=== PATIENT | female | born 1955 | race Caucasian/White ===

== ENCOUNTER 2022-04-30 13:57 | Observation (INO) ==
[2022-04-30] MEDS ORDERED: ZOFRAN 4 MG/2 ML IVP ONE (14:21)
[2022-04-30] MEDS ORDERED: ASPIRIN CHEWABLE PO STA (14:21)
[2022-04-30] MEDS ORDERED: GI COCKTAIL PO ONE (14:25)
[2022-04-30] MEDS ORDERED: CATAPRES PO ONE (14:26)
--- NOTE | 2022-04-30 14:31 | ED.PDOC ---
General <OLY RIVERA MD - Last Filed: 04/30/22 18:46> ED Provider: Dr. OLY RIVERA MD Chief Complaint: Hypertension Stated Complaint: mild back ache nonrad today, no injury, +nausea and elevated BP, hx [place] and cardiac stent, not short of breath, pt states she is not allergic to aspirin or zofran Time Seen by Provider: 04/30/22 14:04 Mode of Arrival: Walk-In Information Source: Patient Primary Care Provider: LANI RUELAS Sepsis Protocol: For patient's 13 years and over: Temp is 96.8 and below OR 101 and greater Pulse >90 BPM Resp >20/minute Acutely Altered Mental Status Are patient's symptoms suggestive of a new infection, such as: -Pneumonia -Skin, Soft Tissue -Endocarditis -UTI -Bone, Joint Infection -Implantable Device -Acute Abdominal Infection -Wound Infection -Meningitis -Blood Stream Catheter Infection -Unknown <ZEINA PRYOR MD - Last Filed: 04/30/22 22:05> Nursing and Triage Documentation Reviewed and Agree: Yes Does patient meet sepsis criteria?: No System Inflammatory Response Syndrome: Not Applicable Review of Systems <OLY RIVERA MD - Last Filed: 04/30/22 18:46> Review Of Systems Constitutional: Denies Fever Eyes: Denies Vision change Ears, Nose, Mouth, Throat: Denies Throat pain Respiratory: Denies Short of air Cardiac: Denies Chest pain GI: Reports Nausea; Denies Abdominal pain : Denies Flank pain Musculoskeletal: Denies Neck pain Skin: Denies Cyanosis Neurological: Denies Cognitive dysfunction All Other Systems: Other PFSH <OLY RIVERA MD - Last Filed: 04/30/22 18:46> Medical History (Updated 04/30/22 @ 21:22 by ZEINA PRYOR MD) Hypertension Social History Smoking and tobacco status: Never smoker Female Reproductive History Menstrual Hx Hysterectomy: Yes Hx Tubal Ligation: No Physical Exam <OLY RIVERA MD - Last Filed: 04/30/22 18:46> Physical Exam Appearance: Reports No pain distress Ill-appearing: None Pain Distress: None Eyes: Reports EOMI and Conjunctiva clear ENT: Reports Oropharynx normal Neck: Supple Respiratory: Reports Airway patent, Breath sounds clear and Breath sounds equal Cardiovascular: Reports RRR GI/: Reports Soft and Nontender Musculoskeletal: Reports ROM intact Skin: Reports Warm and Dry Neurological: Reports Alert and Oriented Psychiatric: Reports Affect appropriate Interpretation <OLY RIVERA MD - Last Filed: 04/30/22 18:46> Security Alarm Technician Time of Security Alarm Technician Interpretation: 18:45 Rate: Normal Rhythm: Sinus EKG Interpretation Time of EKG #1: 18:45 Rate: Normal Rhythm: Sinus Interpretation: no stemi <ZEINA PRYOR MD - Last Filed: 04/30/22 22:05> Re-Evaluation Time of Re-Evaluation: 22:04 Status: Improved Vital Signs Stable: Yes Pain Level: much better <ZEINA PRYOR MD - Last Filed: 04/30/22 22:05> Case Discussed Physician Notified: Dr LOUIE Time of Notification: 21:40 (call [facility] to see if can be admitted if not admit to hospitals[facility] then Dr Ruelas can see or leave to hospitalist. ) <ZEINA PRYOR MD - Last Filed: 04/30/22 22:05> Critical Care Note Total Critical Care Time (mins): 0 Course <OLY RIVERA MD - Last Filed: 04/30/22 18:46> Course Hematology/Chemistry: 04/30/22 14:53 04/30/22 14:53 Orders, Labs, Meds: Lab Review 04/30/22 04/30/22 04/30/22 14:37 14:53 14:53 WBC 7.83 RBC 4.60 Hgb 14.2 Hct 42.7 MCV 92.8 MCH 30.9 MCHC 33.3 RDW Coeff of Todd 12.2 Plt Count 267 Immature Gran % (Auto) 0.1 Neut % (Auto) 66.9 Lymph % (Auto) 24.9 [place] % (Auto) 5.7 Eos % (Auto) 1.5 Baso % (Auto) 0.9 Neut # (Auto) 5.2 Lymph # (Auto) 2.0 [place] # (Auto) 0.5 Eos # (Auto) 0.1 Baso # (Auto) 0.1 Immature Gran # (Auto) 0.0 Sodium 139.4 Potassium 4.37 Chloride 105.8 Carbon Dioxide 30.4 H Anion Gap 7.57 BUN 15.4 Creatinine 0.69 Estimated GFR (MDRD) 85.00 BUN/Creatinine Ratio 22.31 Glucose 106.4 H Lactic Acid Calcium 9.75 Total Bilirubin 0.43 AST 28.6 ALT 20.5 Alkaline Phosphatase 93.7 Troponin I < 0.012 Total Protein 7.48 Albumin 4.36 Globulin 3.12 Albumin/Globulin Ratio 1.39 Urine Color Urine Clarity Urine pH Ur Specific [place] Urine Protein Urine Glucose (UA) Urine Ketones Urine Blood Urine Nitrite Urine Bilirubin Urine Urobilinogen Ur Leukocyte Esterase SARS CoV-2 RNA Rapid GAVIN Negative 04/30/22 04/30/22 04/30/22 14:53 15:14 19:02 WBC RBC Hgb Hct MCV MCH MCHC RDW Coeff of [place] Plt Count Immature Gran % (Auto) Neut % (Auto) Lymph % (Auto) [place] % (Auto) Eos % (Auto) Baso % (Auto) Neut # (Auto) Lymph # (Auto) [place] # (Auto) Eos # (Auto) Baso # (Auto) Immature Gran # (Auto) Sodium Potassium Chloride Carbon Dioxide Anion Gap BUN Creatinine Estimated GFR (MDRD) BUN/Creatinine Ratio Glucose Lactic Acid 2.21 H Calcium Total Bilirubin AST ALT Alkaline Phosphatase Troponin I < 0.012 Total Protein Albumin Globulin Albumin/Globulin Ratio Urine Color Yellow Urine Clarity Clear Urine pH 6.0 Ur Specific [place] <=1.005 Urine Protein Negative Urine Glucose (UA) Negative Urine Ketones Negative Urine Blood Negative Urine Nitrite Negative Urine Bilirubin Negative Urine Urobilinogen 0.2 Ur Leukocyte Esterase Negative SARS CoV-2 RNA Rapid GAVIN Orders Category Date Time Status EKG-(ED ONLY) Stat CARDIO 04/30/22 14:21 Completed CBC W/ AUTO DIFF Stat LAB 04/30/22 14:53 Completed CMP [COMPREHENSIVE METABOLIC PANEL] Stat LAB 04/30/22 14:53 Completed LACTIC ACID Stat LAB 04/30/22 14:53 Completed SARS COV-2 RNA RAPID GAVIN Stat LAB 04/30/22 14:37 Completed TROPONIN I Stat LAB 04/30/22 14:53 Completed TROPONIN I Stat LAB 04/30/22 19:02 Completed URINALYSIS C & S IF INDICATED Stat LAB 04/30/22 15:14 Completed Aspirin [Aspirin Chewable] MEDS 04/30/22 14:21 Discontinued 324 mg PO ONCE STA Clonidine HCl [Catapres] MEDS 04/30/22 14:26 Discontinued 0.1 mg PO ONCE ONE Mag-Al Plus//Lidocaine [Gi Cocktail] MEDS 04/30/22 14:25 Discontinued 30 ml PO ONCE ONE Ondansetron HCl/Pf [Zofran 4 mg/2 ml] MEDS 04/30/22 14:21 Discontinued 4 mg IVP ONCE ONE Ondansetron [Zofran Odt] MEDS 04/30/22 15:11 Discontinued 4 mg PO ONCE ONE Sodium Chloride 0.9% [Sodium Chloride] 1,000 ml MEDS 04/30/22 15:27 Discontinued IV BOLUS CHEST, 1V AP ONLY Stat RADS 04/30/22 14:21 Completed Medications Discontinued Medications Generic Name Dose Route Start Last Admin Trade Name Deacon PRN Reason Stop Dose Admin Al Hydroxide/Mg Hydroxide 30 ml 04/30/22 14:25 04/30/22 15:33 Mag-Al Plus//Lidocaine 30 Ml Btl PO 04/30/22 14:26 30 ml ONCE ONE Administration Aspirin 324 mg 04/30/22 14:21 04/30/22 15:31 Aspirin 81 Mg Tab.Chew PO 04/30/22 14:22 324 mg ONCE STA Administration Clonidine 0.1 mg 04/30/22 14:26 04/30/22 16:40 Clonidine Hcl 0.1 Mg Tablet PO 04/30/22 14:27 Not Given ONCE ONE Sodium Chloride 1,000 mls @ 1,000 mls/hr 04/30/22 15:27 04/30/22 15:37 Sodium Chloride IV 04/30/22 16:26 Not Given BOLUS STA Ondansetron HCl 4 mg 04/30/22 14:21 04/30/22 15:14 Ondansetron Hcl/Pf 4 Mg/2 Ml Sdv IVP 04/30/22 14:22 Not Given ONCE ONE Ondansetron HCl 4 mg 04/30/22 15:11 04/30/22 15:16 Ondansetron Hcl 4 Mg Tab.Rapdis PO 04/30/22 15:12 4 mg ONCE ONE Administration Vital Signs: Temp Pulse Resp BP Pulse Ox 04/30/22 13:58 98.4 F 91 20 174/91 H 98 <ZEINA PRYOR MD - Last Filed: 04/30/22 22:05> Course Orders, Labs, Meds: Lab Review 04/30/22 04/30/22 04/30/22 14:37 14:53 14:53 WBC 7.83 RBC 4.60 Hgb 14.2 Hct 42.7 MCV 92.8 MCH 30.9 MCHC 33.3 RDW Coeff of [place] 12.2 Plt Count 267 Immature Gran % (Auto) 0.1 Neut % (Auto) 66.9 Lymph % (Auto) 24.9 [place] % (Auto) 5.7 Eos % (Auto) 1.5 Baso % (Auto) 0.9 Neut # (Auto) 5.2 Lymph # (Auto) 2.0 [place] # (Auto) 0.5 Eos # (Auto) 0.1 Baso # (Auto) 0.1 Immature Gran # (Auto) 0.0 Sodium 139.4 Potassium 4.37 Chloride 105.8 Carbon Dioxide 30.4 H Anion Gap 7.57 BUN 15.4 Creatinine 0.69 Estimated GFR (MDRD) 85.00 BUN/Creatinine Ratio 22.31 Glucose 106.4 H Lactic Acid Calcium 9.75 Total Bilirubin 0.43 AST 28.6 ALT 20.5 Alkaline Phosphatase 93.7 Troponin I < 0.012 Total Protein 7.48 Albumin 4.36 Globulin 3.12 Albumin/Globulin Ratio 1.39 Urine Color Urine Clarity Urine pH Ur Specific [place] Urine Protein Urine Glucose (UA) Urine Ketones Urine Blood Urine Nitrite Urine Bilirubin Urine Urobilinogen Ur Leukocyte Esterase SARS CoV-2 RNA Rapid GAVIN Negative 04/30/22 04/30/22 04/30/22 14:53 15:14 19:02 WBC RBC Hgb Hct MCV MCH MCHC RDW Coeff of [place] Plt Count Immature Gran % (Auto) Neut % (Auto) Lymph % (Auto) [place] % (Auto) Eos % (Auto) Baso % (Auto) Neut # (Auto) Lymph # (Auto) [place] # (Auto) Eos # (Auto) Baso # (Auto) Immature Gran # (Auto) Sodium Potassium Chloride Carbon Dioxide Anion Gap BUN Creatinine Estimated GFR (MDRD) BUN/Creatinine Ratio Glucose Lactic Acid 2.21 H Calcium Total Bilirubin AST ALT Alkaline Phosphatase Troponin I < 0.012 Total Protein Albumin Globulin Albumin/Globulin Ratio Urine Color Yellow Urine Clarity Clear Urine pH 6.0 Ur Specific [place] <=1.005 Urine Protein Negative Urine Glucose (UA) Negative Urine Ketones Negative Urine Blood Negative Urine Nitrite Negative Urine Bilirubin Negative Urine Urobilinogen 0.2 Ur Leukocyte Esterase Negative SARS CoV-2 RNA Rapid GAVIN Orders Category Date Time Status EKG-(ED ONLY) Stat CARDIO 04/30/22 14:21 Completed CBC W/ AUTO DIFF Stat LAB 04/30/22 14:53 Completed CMP [COMPREHENSIVE METABOLIC PANEL] Stat LAB 04/30/22 14:53 Completed LACTIC ACID Stat LAB 04/30/22 14:53 Completed SARS COV-2 RNA RAPID GAVIN Stat LAB 04/30/22 14:37 Completed TROPONIN I Stat LAB 04/30/22 14:53 Completed TROPONIN I Stat LAB 04/30/22 19:02 Completed URINALYSIS C & S IF INDICATED Stat LAB 04/30/22 15:14 Completed Aspirin [Aspirin Chewable] MEDS 04/30/22 14:21 Discontinued 324 mg PO ONCE STA Clonidine HCl [Catapres] MEDS 04/30/22 14:26 Discontinued 0.1 mg PO ONCE ONE Mag-Al Plus//Lidocaine [Gi Cocktail] MEDS 04/30/22 14:25 Discontinued 30 ml PO ONCE ONE Ondansetron HCl/Pf [Zofran 4 mg/2 ml] MEDS 04/30/22 14:21 Discontinued 4 mg IVP ONCE ONE Ondansetron [Zofran Odt] MEDS 04/30/22 15:11 Discontinued 4 mg PO ONCE ONE Sodium Chloride 0.9% [Sodium Chloride] 1,000 ml MEDS 04/30/22 15:27 Discontinued IV BOLUS CHEST, 1V AP ONLY Stat RADS 04/30/22 14:21 Completed Medications Discontinued Medications Generic Name Dose Route Start Last Admin Trade Name Freq PRN Reason Stop Dose Admin Al Hydroxide/Mg Hydroxide 30 ml 04/30/22 14:25 04/30/22 15:33 Mag-Al Plus//Lidocaine 30 Ml Btl PO 04/30/22 14:26 30 ml ONCE ONE Administration Aspirin 324 mg 04/30/22 14:21 04/30/22 15:31 Aspirin 81 Mg Tab.Chew PO 04/30/22 14:22 324 mg ONCE STA Administration Clonidine 0.1 mg 04/30/22 14:26 04/30/22 16:40 Clonidine Hcl 0.1 Mg Tablet PO 04/30/22 14:27 Not Given ONCE ONE Sodium Chloride 1,000 mls @ 1,000 mls/hr 04/30/22 15:27 04/30/22 15:37 Sodium Chloride IV 04/30/22 16:26 Not Given BOLUS STA Ondansetron HCl 4 mg 04/30/22 14:21 04/30/22 15:14 Ondansetron Hcl/Pf 4 Mg/2 Ml Sdv IVP 04/30/22 14:22 Not Given ONCE ONE Ondansetron HCl 4 mg 04/30/22 15:11 04/30/22 15:16 Ondansetron Hcl 4 Mg Tab.Rapdis PO 04/30/22 15:12 4 mg ONCE ONE Administration Vital Signs: Temp Pulse Resp BP Pulse Ox 04/30/22 13:58 98.4 F 91 20 174/91 H 98 NUNU Risk Score <OLY RIVERA MD - Last Filed: 04/30/22 18:46> NUNU Risk Score: Risk Score Odds of by 30D 0 0.1 (0.1-0.2) 1 0.3 (0.2-0.3) 2 0.4 (0.3-0.5) 3 0.7 (0.6-0.9) 4 1.2 (1.0-1.5) 5 2.2 (1.9-2.6) 6 3.0 (2.5-3.6) 7 4.8 (3.8-6.1) <ZEINA PRYOR MD - Last Filed: 04/30/22 22:05> Age >/= 65: Yes >/= 3 CAD Risk Factors: Yes Known CAD (Stenosis >/= 50%): Yes ASA Use in Past 7 Days: Yes EKG ST Changes >/= 0.5mm: No Postive Cardiac Marker: No NUNU Total Score: 4 Discharge Plan Discharge Patient Disposition: ADMITTED INPATIENT Prescriptions: No Action aspirin [Ecotrin Low Strength] 81 MG tablet,delayed release (DR/EC) 81 mg PO DAILY olmesartan 20 mg Tablet 20 mg PO DAILY metoprolol tartrate 25 mg Tablet 25 mg PO BID Eliquis 5 mg Tablet 5 mg PO BID azelastine 137 mcg (0.1 %) Aerosol,Estill 1 spray INTRANASAL BID Rx Instructions: administer into each nostril Linzess 145 mcg Capsule 145 mcg PO QAM PRN (Reason: Constipation) budesonide [Rhinocort Allergy] 32 mcg/actuation [place],Non-Aerosol 1 spray INTRANASAL DAILY PRN (Reason: allergies) Rx Instructions: administer into each nostril pantoprazole [Protonix] 40 mg Tablet,Delayed Release (Dr/Ec) 40 mg PO DAILY fluticasone propionate 50 mcg/actuation [place],Suspension 1 spray INTRANASAL DAILY Rx Instructions: administer into each nostril fesoterodine [Toviaz] 4 mg Tablet Extended Release 24 Hr 4 mg PO DAILY levothyroxine [Tirosint] 112 mcg Capsule 112 mcg PO DAILY Xiidra 5 % Dropperette 1 drp BOTHEYES BID Rx Instructions: administer approximately 12 hours apart Did you review [place] QUALITY CONTROL AUDITOR?: Not Applicable ED Provider: OLY RIVERA Condition: Fair <OLY RIVERA MD - Last Filed: 04/30/22 18:46> Physician Progress Note: []care to Dr Pryor at 19:00
--- NOTE | 2022-04-30 15:01 | DI ---
EXAM: CHEST RADIOGRAPH (1 VIEW) TECHNIQUE: Frontal Chest Radiograph. HISTORY: Pain COMPARISON: 07/07/2012 FINDINGS: Lines, Tubes, Devices: Cardiac monitoring device Lungs and Pleura: No focal consolidation. No pleural effusion. No pneumothorax. No pulmonary edema . Cardiomediastinum: Normal cardiomediastinal silhouette. No aortic calcifications. Bones/Soft Tissues: No acute osseous abnormality. No soft tissue abnormality. Upper Abdomen: Within normal limits. IMPRESSION: No acute radiographic abnormality.
[2022-04-30 15:07] LABS: BASOPHILS # (AUTO) 0.1 K/uL (0-0.2); BASOPHILS % (AUTO) 0.9 % (0.0-3.0); EOSINOPHILS # (AUTO) 0.1 K/ul (0.0-0.7); EOSINOPHILS % (AUTO) 1.5 % (0.0-7.0); HEMATOCRIT 42.7 % (37.0-47.0); HEMOGLOBIN 14.2 g/dl (12.0-16.0); IMMATURE GRANULOCYTE % (AUTO) 0.1 % (0.0-5.0); LYMPHOCYTES % (AUTO) 24.9 (10.0-50.0); MEAN CORPUSCULAR HEMOGLOBIN 30.9 pg (27.0-31.0); MEAN CORPUSCULAR HGB CONC 33.3 (31.8-35.4); MEAN CORPUSCULAR VOLUME 92.8 fl (81.0-99.0); MONOCYTES # (AUTO) 0.5 K/uL (0.4-2.0); MONOCYTES % (AUTO) 5.7 (0-10); NEUTROPHILS # (AUTO) 5.2 K/ul (2.0-6.9); NEUTROPHILS % (AUTO) 66.9 % (42.2-75.2); PLATELET COUNT 267 10^3/uL (140-440); RDW COEFFICIENT OF VARIATION 12.2 % (11.6-14.8); WHITE BLOOD COUNT 7.83 K/ul (4.6-10.2)
[2022-04-30] MEDS ORDERED: ZOFRAN ODT PO ONE (15:11)
[2022-04-30 15:22] LABS: ALANINE AMINOTRANSFERASE 20.5 U/L (0-35); ALBUMIN 4.36 g/dL (3.5-5.0); ALKALINE PHOSPHATASE 93.7 U/L (53-141); ASPARTATE AMINO TRANSFERASE 28.6 U/L (14-36); BILIRUBIN,TOTAL 0.43 mg/dL (0.2-1.3); BLOOD UREA NITROGEN 15.4 mg/dL (7-17); CALCIUM 9.75 mg/dL (8.4-10.2); CARBON DIOXIDE 30.4 mmol/L (22-30.0); CHLORIDE 105.8 mmol/L (98-107); CREATININE 0.69 mg/dL (0.60-1.30); GLUCOSE 106.4 mg/dL (74-106); POTASSIUM 4.37 mmol/L (3.5-5.1); SODIUM 139.4 mmol/L (134.5-145); TOTAL PROTEIN 7.48 g/dL (6.3-8.2)
[2022-04-30] MEDS ORDERED: SODIUM CHLORIDE 1,000 ML IV STA (15:27)
[2022-04-30 15:30] LABS: BILIRUBIN,URINE Negative (NEGATIVE); CLARITY,URINE Clear (CLEAR); COLOR,URINE Yellow (YELLOW); GLUCOSE, URINE (UA) Negative (NEGATIVE); KETONES,URINE Negative (NEGATIVE); LEUKOCYTE ESTERASE ,URINE Negative (NEGATIVE); NITRITE,URINE Negative (NEGATIVE); PROTEIN,URINE Negative (NEGATIVE); URINE, BLOOD Negative (NEGATIVE); UROBILINOGEN,URINE 0.2 (0.2)
[2022-04-30 15:33] LABS: TROPONIN I < 0.012 ng/ml (0.0000-0.120)
[2022-04-30 15:52] LABS: SARS COV-2 RNA RAPID NAAT NEGATIVE (NEGATIVE)
[2022-04-30] MEDS ORDERED: TYLENOL PO PRN (22:17)
[2022-04-30] MEDS ORDERED: ATROPINE SULFATE PFS IVP PRN (22:17)
[2022-04-30] MEDS ORDERED: NITROSTAT SL PRN (22:17)
[2022-04-30] MEDS ORDERED: LINACLOTIDE 145 MCG PO PRN (22:19)
[2022-04-30 23:20] VITALS: BMI 37.4
[2022-04-30] MEDS ORDERED: ELIQUIS PO ONE (23:43)
[2022-04-30] MEDS ORDERED: LOPRESSOR PO ONE (23:43)
[2022-05-01 01:41] LABS: CREATINE KINASE 96.7 U/L (30-135)
[2022-05-01 02:20] LABS: TROPONIN I < 0.012 ng/ml (0.0000-0.120)
[2022-05-01] MEDS: SYNTHROID PO SCH (05:50)
[2022-05-01 06:43] LABS: BASOPHILS # (AUTO) 0.1 K/uL (0-0.2); BASOPHILS % (AUTO) 1.2 % (0.0-3.0); EOSINOPHILS # (AUTO) 0.2 K/ul (0.0-0.7); EOSINOPHILS % (AUTO) 3.5 % (0.0-7.0); HEMATOCRIT 38.8 % (37.0-47.0); HEMOGLOBIN 13.2 g/dl (12.0-16.0); IMMATURE GRANULOCYTE % (AUTO) 0.4 % (0.0-5.0); LYMPHOCYTES # (AUTO) 1.6 K/uL (0.60-3.4); LYMPHOCYTES % (AUTO) 32.4 (10.0-50.0); MEAN CORPUSCULAR HEMOGLOBIN 30.6 pg (27.0-31.0); MEAN CORPUSCULAR VOLUME 89.8 fl (81.0-99.0); MONOCYTES # (AUTO) 0.4 K/uL (0.4-2.0); MONOCYTES % (AUTO) 8.6 (0-10); NEUTROPHILS # (AUTO) 2.6 K/ul (2.0-6.9); NEUTROPHILS % (AUTO) 53.9 % (42.2-75.2); PLATELET COUNT 180 10^3/uL (140-440); RDW COEFFICIENT OF VARIATION 12.1 % (11.6-14.8); RED BLOOD COUNT 4.32 10^6/ul (4.20-5.40); WHITE BLOOD COUNT 4.88 K/ul (4.6-10.2)
[2022-05-01 06:52] LABS: ALANINE AMINOTRANSFERASE 18.4 U/L (0-35); ALBUMIN 3.88 g/dL (3.5-5.0); ALKALINE PHOSPHATASE 80.1 U/L (53-141); ASPARTATE AMINO TRANSFERASE 27.8 U/L (14-36); BLOOD UREA NITROGEN 14.2 mg/dL (7-17); CALCIUM 9.22 mg/dL (8.4-10.2); CARBON DIOXIDE 25.8 mmol/L (22-30.0); CHLORIDE 106.7 mmol/L (98-107); CREATINE KINASE 94.6 U/L (30-135); CREATININE 0.64 mg/dL (0.60-1.30); POTASSIUM 3.71 mmol/L (3.5-5.1); SODIUM 136.6 mmol/L (134.5-145)
[2022-05-01 07:27] LABS: TROPONIN I < 0.012 ng/ml (0.0000-0.120)
[2022-05-01] MEDS ORDERED: AMITIZA PO PRN (08:08)
[2022-05-01] MEDS ORDERED: LEVOTHYROXINE 112 MCG PO SCH (09:00)
[2022-05-01] MEDS ORDERED: PROTONIX PO SCH (09:00)
[2022-05-01] MEDS ORDERED: ASPIRIN EC PO SCH (09:00)
[2022-05-01] MEDS: LOPRESSOR PO SCH ×2 (09:06→20:49)
[2022-05-01] MEDS: BENICAR PO SCH (09:06)
[2022-05-01] MEDS: ELIQUIS PO SCH ×2 (09:06→20:49)
[2022-05-01] MEDS: FLONASE NAS SCH (09:07)
[2022-05-01] MEDS: ASTELIN 0.1% NAS SCH ×2 (09:07→20:50)
[2022-05-01] MEDS: LIFITEGRAST 5% EACHEYE SCH ×2 (09:08→21:12)
[2022-05-01] MEDS: FESOTERODINE 4 MG PO SCH (09:08)
[2022-05-01 12:12] LABS: CHOLESTEROL 195.6 mg/dL (0-200); TRIGLYCERIDES 120.7 mg/dL (0-150)
[2022-05-01 12:44] LABS: THYROID STIMULATING HORMONE 1.95 uIU/L (0.465-4.68)
--- NOTE | 2022-05-01 13:23 | PCM.PROG ---
Date Seen by Provider: 05/01/22 Time Seen by Provider: 13:20 Subjective: dx. chest pain pt improved, no chest pain, troponin not elevated Objective: Vitals: T=96.8 F, P=73, R=16, MB=165/80, SPO2=98 HEENT: []conjunctiva clear Neck: []supple Lungs: [] no respiratory distress CVS: []rrr Abdomen: []nondistended Extremities: []abhishek Neurological: []alert and oriented Skin: []pink Lab/Tests/Diagnostic Imaging: [] Plan: obtain Dr Hanson consult, t4, tsh, lipid profile, 2decho care to Dr Mack at 19:00
[2022-05-01] MEDS ORDERED: K-DUR PO ONE (15:42)
[2022-05-01] MEDS ORDERED: LASIX TAB PO ONE (15:42)
[2022-05-02 05:18] VITALS: TEMP 97.8
[2022-05-02 05:19] LABS: BASOPHILS # (AUTO) 0.1 K/uL (0-0.2); EOSINOPHILS # (AUTO) 0.2 K/ul (0.0-0.7); EOSINOPHILS % (AUTO) 4.1 % (0.0-7.0); HEMATOCRIT 40.4 % (37.0-47.0); HEMOGLOBIN 13.4 g/dl (12.0-16.0); IMMATURE GRANULOCYTE % (AUTO) 0.3 % (0.0-5.0); LYMPHOCYTES # (AUTO) 2.2 K/uL (0.60-3.4); LYMPHOCYTES % (AUTO) 36.8 (10.0-50.0); MEAN CORPUSCULAR HEMOGLOBIN 30.4 pg (27.0-31.0); MEAN CORPUSCULAR HGB CONC 33.2 (31.8-35.4); MEAN CORPUSCULAR VOLUME 91.6 fl (81.0-99.0); MONOCYTES # (AUTO) 0.5 K/uL (0.4-2.0); MONOCYTES % (AUTO) 8.9 (0-10); NEUTROPHILS # (AUTO) 2.9 K/ul (2.0-6.9); NEUTROPHILS % (AUTO) 48.9 % (42.2-75.2); PLATELET COUNT 248 10^3/uL (140-440); RDW COEFFICIENT OF VARIATION 12.3 % (11.6-14.8); RED BLOOD COUNT 4.41 10^6/ul (4.20-5.40); WHITE BLOOD COUNT 5.84 K/ul (4.6-10.2)
[2022-05-02 05:31] LABS: ALANINE AMINOTRANSFERASE 17.4 U/L (0-35); ALBUMIN 3.79 g/dL (3.5-5.0); ALKALINE PHOSPHATASE 72.5 U/L (53-141); ASPARTATE AMINO TRANSFERASE 24.2 U/L (14-36); BILIRUBIN,TOTAL 0.4 mg/dL (0.2-1.3); BLOOD UREA NITROGEN 18.6 mg/dL (7-17); CALCIUM 9.25 mg/dL (8.4-10.2); CARBON DIOXIDE 27.8 mmol/L (22-30.0); CHLORIDE 107.1 mmol/L (98-107); CREATININE 0.68 mg/dL (0.60-1.30); GLUCOSE 104.8 mg/dL (74-106); POTASSIUM 4.11 mmol/L (3.5-5.1); SODIUM 138.7 mmol/L (134.5-145); TOTAL PROTEIN 6.74 g/dL (6.3-8.2)
[2022-05-02] MEDS: SYNTHROID PO SCH (06:05)
[2022-05-02] MEDS ORDERED: PROTONIX PO SCH (06:30)
[2022-05-02] MEDS ORDERED: ASPIRIN EC PO SCH (08:30)
[2022-05-02] MEDS: FLONASE NAS SCH (10:27)
[2022-05-02] MEDS: ASTELIN 0.1% NAS SCH (10:27)
--- NOTE | 2022-05-02 10:27 | PCM.DC ---
Final Diagnosis: chest pain Physical Exam Appearance: Well-appearing Ill-appearing: None Pain Distress: None Eyes: Conjunctiva clear ENT: Not Examined Neck: Supple Respiratory: Airway patent Cardiovascular: RRR GI/: Other (nondistended) Musculoskeletal: ROM intact Skin: Normal color Neurological: Alert and Oriented Psychiatric: Affect appropriate Reason for Hospitalization: chest pain Prognosis/Condition at Discharge: good Medications at Discharge: all home meds Lab/Diagnostics: stress echo per Dr Hanson normal Education Provided to Patient and Family: continue present medical regimen 40 min spent on discharge Follow-ups: see Dr Gallardo as scheduled Discharge Disposition: Home Hospital Course: improved Plan: see Dr Mirza for med review
[2022-05-02] MEDS: ELIQUIS PO SCH (10:28)
[2022-05-02] MEDS: LOPRESSOR PO SCH (10:28)
[2022-05-02] MEDS: FESOTERODINE 4 MG PO SCH (10:28)
[2022-05-02] MEDS: BENICAR PO SCH (10:28)
[2022-05-02] MEDS: LIFITEGRAST 5% EACHEYE SCH (10:29)
[2022-05-02 10:48] VITALS: BP 132/86
--- NOTE | 2022-05-03 13:06 | CONS ---
DATE OF CONSULTATION: 05/01/22 REASON FOR CONSULTATION: Unstable angina HISTORY OF PRESENT ILLNESS: 67 year old white female hospitalized on 04/30/22 that was yesterday with having mild back ache, nausea and with history of having fluid retention, gained 22 pounds in past 3-4 months and elevated blood pressure. The patient denies of any chest discomfort, chest pain, sweating, shortness of breath. The patient was seen and examined in the emergency room by ER attending. Blood pressure in the emergency room was 174/90 with 98% saturation. She was not at all in any distress. Her EKG showed sinus rhythm, no acute changes. Her Cardiac markers were negative. This morning the patient's EKG unchanged no acute changes with cardiac markers negative for any acute myocardial event. REVIEW OF SYSTEMS: CONSTITUTIONAL: No night sweats. No fatigue, malaise, lethargy. No fever or chills. HEENT: Eyes: No visual changes. No eye pain. No eye discharge. ENT: No sinus drainage. No epistaxis. No sinus pain. No sore throat. No odynophagia. No ear pain. No congestion. RESPIRATORY: No cough, no congestion. No hemoptysis. No shortness of breath. CARDIOVASCULAR: No angina symptoms. No CHF symptoms. No atypical chest pain for CAD. No palpitations. No orthopnea. GASTROINTESTINAL: No abdominal pain. Mild nausea. No diarrhea or constipation. No hematemesis. No hematochezia. GENITOURINARY: No urgency. No frequency. No dysuria. No hematuria. No obstructive symptoms. No discharge. No pain. No significant abnormal bleeding. MUSCULOSKELETAL: No musculoskeletal pain. No joint swelling. NEUROLOGICAL: No headache. No neck pain. No syncope. No seizures. No dizziness. PSYCHIATRIC: Not anxious. No depression. No suicidal thoughts. No homicidal thoughts. SKIN: No rash. No lesions. No wounds. ENDOCRINE: No unexplained weight loss. No weight gain. HEMATOLOGIC/LYMPHATIC: No anemia. No purpura. No petechiae. No prolonged or excessive bleeding. No palpable lymph nodes. MEDICATIONS: Aspirin Apixaban Trinasal spray Metoprolol Benicar Levothyroxine Pantoprazole ALLERGIES: None SOCIAL/PERSONAL/FAMILY HISTORY: The patient is nonsmoker. No alcohol abuse. and lives with the . Does all activity of daily living. No history of falls. PHYSICAL EXAMINATION: GENERAL: The patient is oriented to time, place and person, no distress. VITAL SIGNS: Temperature 96.8, pulse 73, respiratory rate 16, blood pressure 128/80 and pulse ox 98% on room air. HEENT: Head normocephalic, atraumatic. Eyes: Extraocular muscles are intact. Pupils are equal, round and reactive to light and accommodation. Ears: No lesions. Nose appeared normal. Throat: No exudate or erythema. NECK: Supple. No JVD, no carotid bruit. No lymphadenopathy or thyromegaly. LUNGS: Decreased breath sounds but clear to auscultation. Percussion note normal. Chest symmetrical. HEART: S1, S2, no S3. No murmurs. No cyanosis or clubbing. No ascites. Pulses: Dorsalis pedis and posterior tibial pulses +1 to +2 bilaterally. ABDOMEN: Soft. Nontender. Bowel sounds active. No CVA tenderness. No mass felt. EXTREMITIES: No edema. Full range of motion of all extremities, equal. NEUROLOGIC: No focal deficit. Cranial nerves II through XII are grossly intact. No headache, no double vision or headache. SKIN: Not dry. Intact. Turgor - normal. LYMPHATIC: No palpable lymph nodes/no lymphedema. MUSCULOSKELETAL: Normal joints with no swelling. Muscle tone is normal. LABS: Hgb 13.2, hct 38, WBC 4,800 normal differential, creatinine 0.6, BUN 14, potassium 3.7. Troponin times two negative. EKG sinus rhythm no acute changes. CK negative. Creatinine 0.6, BUN 15, glucose 106. Liver profile negative. Telemetry strips examined. No ST-T wave changes. Records from Dr. Felix and from [place] reviewed. The patient had stress echo performed on 10/17/20 which was negative for ischemia. Echo done recently in June showed normal ejection fraction. Worked for palpitation that had been noted to be sinus tachycardia. ASSESSMENT: 1. History of coronary angioplasty with stent with history of [place] 2014, rule out [place] or ischemia with some nonspecific complaints pertaining to 2. Hypertension with some fluid retention and weight gain 3. Cardiac catheterization 2017 no intervention 4. Sleep apnea 5. History of palpitation, thought to be sinus tachycardia, loop recorder insertion 2016 6. Status post laparotomy exploratory with collectomy and colostomy 2019 7. History of diverticulitis 8. History of hypertension 9. Dyslipidemia on Repatha RECOMMENDATIONS: 1. Continue the same medications including Metoprolol and Benicar 2. Lasix and Potassium just one dose 3. May not be reasonable to add diuretic to Benicar to help to control blood pressure better with some fluid retention 4. The patient is on Repatha still the NONHDL component is 130 maybe benefit from adding Statin 5. Echocardiogram was done this morning which showed normal LV contractility with normal ejection fraction, normal LV size, valvular structures were normal 6. We will stress echo in the morning 7. The patient's condition is stable. 8. The patient's BMI is 37, discussed about cut down on salt intake 9. Elevate the legs at night 10. Weight loss diet discussed Thanks for referral, will follow. AMANDA
--- NOTE | 2022-05-03 13:22 | CONS ---
DATE OF SERVICE: 05/02/22 CONSULT FOLLOWUP SUBJECTIVE: 67 year old white female seen for evaluation for cardiovascular status 05/01/22. The patient is practically asymptomatic feeling good. REVIEW OF SYSTEMS: CONSTITUTIONAL: No night sweats. No fatigue, malaise, lethargy. No fever or chills. HEENT: Eyes: No visual changes. No eye pain. No eye discharge. ENT: No runny nose. No epistaxis. No sinus pain. No sore throat. No odynophagia. No ear pain. No congestion. RESPIRATORY: No cough, no congestion. No hemoptysis. CARDIOVASCULAR: No angina symptoms. No CHF symptoms. No atypical chest pain for CAD. No palpitations. No shortness of breath. GASTROINTESTINAL: No abdominal pain. No nausea or vomiting. No diarrhea or constipation. No hematemesis. No hematochezia. GENITOURINARY: No urgency. No frequency. No dysuria. No hematuria. No obstructive symptoms. No discharge. No pain. No significant abnormal bleeding. MUSCULOSKELETAL: No musculoskeletal pain. No joint swelling. No arthritis. NEUROLOGICAL: No headache. No neck pain. No syncope. No seizures. No dizziness. PSYCHIATRIC: Not anxious. No depression. No suicidal thoughts. No homicidal thoughts. SKIN: No rash. No lesions. No wounds. ENDOCRINE: No unexplained weight loss. No weight gain. HEMATOLOGIC/LYMPHATIC: No anemia. No purpura. No petechiae. No prolonged or excessive bleeding. No palpable lymph nodes. PHYSICAL EXAMINATION: GENERAL: The patient is oriented to time, place and person. VITAL SIGNS: Temperature 97.8, pulse 74, respiratory rate 18, blood pressure 117/80 and pulse ox 96%. HEENT: Head normocephalic, atraumatic. Eyes: Extraocular muscles are intact. Pupils are equal, round and reactive to light and accommodation. Ears: No lesions. Nose appeared normal. Throat: No exudate or erythema. NECK: Supple. No JVD, no carotid bruit. No lymphadenopathy or thyromegaly. LUNGS: Decreased breath sounds but clear to auscultation. Percussion note normal. Chest symmetrical. HEART: S1, S2, no S3. No murmur. No cyanosis or clubbing. No ascites. Pulses: Dorsalis pedis and posterior tibial pulses +1 bilaterally. ABDOMEN: Soft. Nontender. Bowel sounds active. No CVA tenderness. No mass felt. EXTREMITIES: No edema. Full range of motion of all extremities, equal. NEUROLOGIC: No focal deficit. Cranial nerves II through XII are grossly intact. No headache, no double vision or headache. SKIN: Not dry. Intact. Turgor - normal. LYMPHATIC: No palpable lymph nodes/no lymphedema. MUSCULOSKELETAL: Normal joints with no swelling. Muscle tone is normal. LABS: Hgb 13.4, hct 40, WBC 5,800 normal differential, creatinine 0.6, BUN 18, potassium 4.1. The patient had stress echo done on regular Mode Protocol and reached the target heart rate with no ST-T wave changes. METS level was 5.0. Occasional PVC noted. Blood pressure response was normal. Oxygen saturation more than 90% with exercise. LV contractility at rest. Post exercise normal. ASSESSMENT: 1. History of status post angioplasty stent placement 2014 2. Nonspecific complaints on admission seems to be noncardiac. So far EKG times two unchanged, normal. All cardiac markers are negative. Telemetry did not show any ST-T wave change while she was in the hospital for 48 hours. Echocardiogram with normal ejection fraction, normal valvular structures. Stress echo performed on day of discharge negative for ischemia. No chest pain, no discomfort, no abdominal discomfort. RECOMMENDATIONS: 1. The patient's case discussed with hospitalist Dr. Montalvo. The patient could be discharged home. 2. The patient's BNP is 106 well within normal range. The patient had no evidence of CHF. Some fluid retention from traveling and excess salt intake 3. The patient's NON-HDL fraction is around 130. Heart rate is as is should be 100 4. Recommended Statin with Repatha but the patient says that she has not been able to tolerate any Statin 5. On admission the patient's blood pressure was elevated with the same medication the patient's blood pressure is within normal range. Only other option which the patient has is small dose of Diuretic with Benicar in case the blood pressure become a problem with some fluid retention. Thank you very much for referral. AMANDA
--- NOTE | 2022-05-03 14:20 | PN ---
05/01/22: Level 5 05/02/22: Extensive MTDD
--- NOTE | 2022-05-07 08:15 | ECHOSTRESS ---
Date of Exam: 05/02/2022 Ordering Physician: DR. LANI RUELAS Reason for Echo: CHEST PAIN, TACHYCARDIA, [place] W/STENT 2014, STRESS TEST--NO ISCHEMIA M-Mode Normal Adult Results LV Dimensions Normal Adult Results AoV Opening excursions >1.6 LVEDD-base- 3.5-5.8 Ao root dimensions 2.0-3.7 LVESD-base- 3.1-4.6 L. Atrium dimensions 1.9-3.8 Post. Wall thickness 0.8-1.1 IV septum (thickness) 0.7-1.2 Post. Wall excursion 0.72-1.3 Septal motion Systolic motion R. Ventricular cavity 1.5-2.0 LVEF 60% Paradoxical septal wall motion 2-D: NORMAL LEFT VENTRICLE CONTRACTILITY--RESTING AND POST EXERCISE M-MODE: MV: AV: TV: PV: CHAMBER SIZE: WALL MOTION: NORMAL LEFT VENTRICLE CONTRACTILITY--RESTING AND POST EXERCISE PERICARDIUM: INTERPRETATION: 1. NORMAL LEFT VENTRICLE CONTRACTILITY--RESTING AND POST EXERCISE MTDD
--- NOTE | 2022-05-08 14:13 | ECHO2D ---
Date of Exam: 05/01/2022 Ordering Physician: DR. LANI RUELAS Room #: [id number] Reason for Echo: ANGINA, HTN, HYPOKALEMIA, [place] 2015 X2 STENTS M-Mode Normal Adult Results LV Dimensions Normal Adult Results AoV Opening excursions >1.6 >1.6 LVEDD-base- 3.5-5.8 5.3 Ao root dimensions 2.0-3.7 2.7 LVESD-base- 3.1-4.6 L. Atrium dimensions 1.9-3.8 3.9 Post. Wall thickness 0.8-1.1 1.0 IV septum (thickness) 0.7-1.2 1.2 Post. Wall excursion 0.72-1.3 NORMAL Septal motion NORMAL Systolic motion R. Ventricular cavity 1.5-2.0 NORMAL LVEF 60% 61% Paradoxical septal wall motion NORMAL 2-D : 2-D M Mode Echocardiogram was performed using apical four chamber and left parasternal long and short axis views. Mitral, tricuspid and aortic valves appear to be normal. Contractility of the left ventricle seems to be normal, so is the cavity size. Left atrial cavity size and aortic root appear to be normal. There is no pericardial effusion. There is no thrombus noted in the left ventricle or left atrial cavity. M-MODE: MV: NORMAL AV: NORMAL TV: NORMAL PV: CHAMBER SIZE: NORMAL WALL MOTION: NORMAL PERICARDIUM: NORMAL INTERPRETATION: 1. BORDERLINE LEFT VENTRICLE HYPERTROPHY 2. NORMAL VALVES 3. NORMAL LEFT VENTRICLE AND LEFT VENTRICLE CONTRACTILITY 4. NORMAL RIGHT VENTRICLE AND LEFT ATRIAL SIZE 5. NO THROMBUS OR THROMBI MTDD
--- NOTE | 2022-05-09 13:31 | STRESSECHO ---
Date of Test: 05/02/2022 Ordering Physician: DR. LANI RUELAS Occupation:RETIRED Reason for Exam: CHEST PAIN, [place] 2015, TACHYCARDIA Smoking History: NONE Height: 61" Weight: 198 LBS Current Medications: METOPROLOL, ELIQUIS, TOVIAZ, PROTONIX, LINZESS Resting EKG: SINUS RHYTHM / NO ACUTE CHANGES Target Heart Rate: 130/153 S-T SEGMENT STAGE MPH/GRADE HEART RATE BPM BLOOD PRESSURE MMHG RHYTHM +/- ELEVATION DEPRESSION SYMPTOMS AT REST 76 BPM 118/68 MMHG SR X NONE 1 1.7/10% 135 BPM 120/66 MMHG SR X NONE 2 2.5/12% 3 3.4/14% 4 4.2/16% 5 5.0/18% Immediately After SR X MILD SOA Minutes Post Exercise 1:00 99 BPM 168/70 MMHG SR X NONE Minutes Post Exercise 5:00 96 BPM 148/68 MMHG SR X NONE DURATION OF EXERCISE: 3:19 MAXIMUM HEART RATE REACHED: 142 BPM REASON FOR TERMINATION: MILD SOA 95% OXYGEN SATURATION WITH EXERCISE ON ROOM AIR INTERPRETATION: 1. NO EVIDENCE OF ISCHEMIC ST-T WAVE CHANGES 2. NO CHEST PAIN OR DISCOMFORT OR ABDOMINAL DISCOMFORT 3. BLOOD PRESSURE RESPONSE: ADEQUATE 4. FEW ISOLATED PVC'S NORMAL LEFT VENTRICLE CONTRACTILITY AT REST AND WITH EXERCISE MTDD
== END 2022-05-02 11:32 | disposition home or self-care (01) ==
LOC: ED 13:57 → MEDSURG A 13:57
PROVIDERS: ADMIT Internal Medicine Geriatric Medicine; ATTEND Emergency Medicine Emergency Medical Services
DX: Z95.5 Presence of coronary angioplasty implant and graft; I10 Essential (primary) hypertension; Z79.899 Other long term (current) drug therapy; I20.9 Angina pectoris, unspecified; G47.30 Sleep apnea, unspecified; Z86.79 Personal history of other diseases of the circulatory system; R60.9 Edema, unspecified; E78.5 Hyperlipidemia, unspecified; Z51.81 Encounter for therapeutic drug level monitoring; R07.9 Chest pain, unspecified; R00.0 Tachycardia, unspecified; I25.2 Old myocardial infarction; Z79.82 Long term (current) use of aspirin; Z79.01 Long term (current) use of anticoagulants; Z20.822 Contact with and (suspected) exposure to COVID-19